=== PATIENT | male | born 1950 | race Two or more races ===

== ENCOUNTER → 2018-07-11 | Outpatient (CLI) | payer MEDICARE, BC ==
[2018-07-11 12:47] LABS: URINE PROTEIN NEGATIVE (NEGATIVE)
[2018-07-12 17:37] LABS: CREATININE, RANDOM URINE 36 mg/dL (20-320); MICROALBUMIN 2.3 mg/dL; MICROALBUMIN/CREATININE RATIO 64 (<30)
== END | disposition home or self-care (01) ==
LOC: LAB 11:08
DX: R80.9 Proteinuria, unspecified (principal)
CPT/HCPCS: 82043